=== PATIENT | female | born 2000 | race Caucasian/White ===

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

== ENCOUNTER 2018-04-11 08:38 | Emergency (ER) | payer OTHER ==
[2018-04-11 08:51] VITALS: BP 135/87; PULSE 95; RESP 16; TEMP 98.5; O2SAT 99
--- NOTE | 2018-04-11 09:20 | C.PDOC ---
History Of Present Illness 18 years old female with no significant PMHx presents to ED for complaints of feeling short of breath intermittently. Patient reports symptom is related to stress or anxiety. Patient states she feels depressed and requests to speak to someone further and states experiencing depressive episodes in the past and saw a psychologist 7 years ago. Patient states she was never treated with medication or has never been diagnosed. Denies cough, alcohol use, history of smoking, SI, HI, or hallucinations. LNMP 03/29/18. Time Seen by Provider: 04/11/18 09:00 Chief Complaint (Nursing): Shortness Of Breath History Per: Patient History/Exam Limitations: no limitations Onset/Duration Of Symptoms: Hrs Current Symptoms Are (Timing): Still Present Initiating Event: Emotionaly Upset Current Respiratory Medications: See Home Med List, None Associated Symptoms: Anxiety. denies: Fever, Chills, Chest Pain, Heart Racing Recent travel outside of the [place]: No Past Medical History Reviewed: Historical Data, Nursing Documentation, Vital Signs Vital Signs: Last Vital Signs Temp 98.5 F 04/11/18 08:48 Pulse 95 H 04/11/18 08:48 Resp 16 04/11/18 09:07 BP 135/87 04/11/18 08:48 Pulse Ox 99 04/11/18 10:37 - Medical History PMH: No Chronic Diseases Surgical History: No Surg Hx Family History: States: Unknown Family Hx - Social History Hx Tobacco Use: No Hx Alcohol Use: No Hx Substance Use: No - Immunization History Hx Tetanus Toxoid Vaccination: No Hx Influenza Vaccination: No Hx Pneumococcal Vaccination: No Review Of Systems Constitutional: Negative for: Fever, Chills Respiratory: Positive for: Shortness of Breath. Negative for: Cough Gastrointestinal: Negative for: Nausea, Vomiting, Diarrhea Skin: Negative for: Rash Neurological: Negative for: Weakness, Numbness Psych: Positive for: Anxiety, Depression. Negative for: Suicidal ideation Physical Exam - Physical Exam Appears: Well, Non-toxic, No Acute Distress, Other (Crying, emotional ) Skin: Normal Color, Warm, Dry, No Rash Head: Atraumatic, Normacephalic Eye(s): bilateral: Normal Inspection Oral Mucosa: Moist Neck: Normal ROM Chest: Symmetrical Cardiovascular: Rhythm Regular, No Murmur Respiratory: Normal Breath Sounds, No Rales, No Rhonchi, No Wheezing Gastrointestinal/Abdominal: Bowel Sounds (Active ), Soft, No Tenderness, No Guarding Extremity: Bilateral: Atraumatic, Normal Color And Temperature, Normal ROM Neurological/Psych: Oriented x3, Normal Speech Gait: Steady ED Course And Treatment ECG: Interpreted By Me, Viewed By Me ECG Rhythm: Sinus Rhythm ECG Interpretation: No Acute Changes Rate From EC O2 Sat by Pulse Oximetry: 99 (RA) Pulse Ox Interpretation: Normal - Other Rad CXR X-Ray: Viewed By Me, Read By Radiologist Interpretation: Chest x-ray two views. History: Shortness of breath. Comparison: 11/16/2016. Findings: No focal infiltrate or effusion. Bibasilar breast and nipple shadows. Few scattered nodular densities throughout both lung ayers may represent prominent vessels on end. Impression: No focal infiltrate or effusion. Medical Decision Making Medical Decision Making: Plan: * Blood work for med clearance * CXR * Urinalysis Progress: Crisis consulted for evaluation of possible depression and anxiety. Per crisis the patient does not want admission nor blood work. Patient simply wanted to talk with someone to express her thoughts and feelings. Patient given outpatient follow up Disposition Counseled Patient/Family Regarding: Diagnosis, Need For Followup - Disposition Referrals: [facility] [Outside] Disposition: HOME/ ROUTINE Disposition Time: 09:47 Condition: STABLE Instructions: Adjustment Disorder Forms: [facility] (Qatari) - POA Present On Arrival: None - Clinical Impression Clinical Impression: Adjustment disorder - PA / JOB ANALYST / Resident Statement MD/DO has reviewed & agrees with the documentation as recorded. - Scribe Statement The provider has reviewed the documentation as recorded by the Samibgodwin Kline All medical record entries made by the Samibe were at my direction and personally dictated by me. I have reviewed the chart and agree that the record accurately reflects my personal performance of the history, physical exam, medical decision making, and the department course for this patient. I have also personally directed, reviewed, and agree with the discharge instructions and disposition.
[2018-04-11 09:32] LABS: SQUAMOUS EPITHIAL 7 /hpf (0-5); URINE BILIRUBIN NEGATIVE (NEGATIVE); URINE BLOOD 1+ (NEGATIVE); URINE CLARITY Hazy (Clear); URINE COLOR Yellow (YELLOW); URINE GLUCOSE (UA) NORMAL (Normal); URINE LEUKOCYTE ESTERASE 1+ Leu/uL (Negative); URINE PROTEIN NEGATIVE (NEGATIVE); URINE UROBILINOGEN NORMAL mg/dL (0.2-1.0)
--- NOTE | 2018-04-11 10:03 | RAD ---
Chest x-ray two views History: Shortness of breath. Comparison: 11/16/2016 Findings: No focal infiltrate or effusion. Bibasilar breast and nipple shadows. Few scattered nodular densities throughout both lung ayers may represent prominent vessels on end. Impression: No focal infiltrate or effusion.
[2018-04-11 10:09] LABS: BARBITURATES, UR NEGATIVE (NEGATIVE); BENZODIAZEPINES, UR NEGATIVE (NEGATIVE); OPIATES, UR NEGATIVE (NEGATIVE); PHENCYCLIDINE, UR NEGATIVE (NEGATIVE)
== END 2018-04-11 09:55 | disposition home or self-care (01) ==
LOC: C.ER 08:38
DX: F43.20 Adjustment disorder, unspecified (principal)